=== PATIENT | female | born 1995 | race Caucasian/White ===

== ENCOUNTER 2017-06-30 17:26 | Emergency (ER) | payer SELFPAY ==
[~2017-06-30] VITALS: Ht 167.6 cm; Wt 54.4 kg
[2017-06-30 17:33] VITALS: Ht 167.6 cm; Wt 54.4 kg
[2017-06-30 21:13] VITALS: BP 130/83
== END 2017-06-30 21:33 | disposition home or self-care (01) ==
LOC: ED 17:26
DX: S09.90XA Unspecified injury of head, initial encounter (principal); J45.909 Unspecified asthma, uncomplicated; Z88.1 Allergy status to other antibiotic agents; W18.39XA Other fall on same level, initial encounter; Y93.89 Activity, other specified; Y92.89 Other specified places as the place of occurrence of the external cause; Y99.8 Other external cause status
CPT/HCPCS: Q0162